=== PATIENT | male | born 1960 | race Caucasian/White ===

== ENCOUNTER 2024-03-19 09:59 | Emergency (ER) | payer OTHER ==
[2024-03-19 10:13] VITALS: BP 169/96; PULSE 89; RESP 18; TEMP 98.8; BMI 31.9
[2024-03-19] MEDS ORDERED: DIPHTH,PERTUSS(ACELL),TET 0.5 ML DISP.SYRIN IM ONE (11:19)
[2024-03-19] MEDS: DIPHTH,PERTUSS(ACELL),TET 0.5 ML DISP.SYRIN IM ONE (11:24)
== END 2024-03-19 12:37 | disposition home or self-care (01) ==
LOC: JERFT 09:59
PROC: 3E0234Z Introduction of Serum, Toxoid and Vaccine into Muscle, Percutaneous Approach (ICD-10-PCS; principal; 2024-03-19)
DX: S61.235A Puncture wound without foreign body of left ring finger without damage to nail, initial encounter (principal); W26.8XXA Contact with other sharp object(s), not elsewhere classified, initial encounter; Y99.0 Civilian activity done for income or pay; Z23 Encounter for immunization
CPT/HCPCS: 73130-TC-LT-FY; 90715; 99284-25